=== PATIENT | male | born 1945 | race Two or more races ===

== ENCOUNTER 2019-03-08 13:26 | Emergency (ER) | payer BC, MEDICARE ==
[~2019-03-08] VITALS: Ht 175.3 cm; Wt 81.6 kg
[~2019-03-08 13:26] MED LIST: ASPIR 8181 MG ORAL; METFORMIN HCL500 M1 ORAL; MULTIVITAMINS1 EAC2 ORAL
[2019-03-08 13:35] VITALS: BP 154/86
[2019-03-08] MEDS ORDERED: Surgicel 4in x 8in TOPIC ONE (13:45)
[2019-03-08] MEDS ORDERED: IBUPROFEN600 MG ORAL (14:27)
--- NOTE | 2019-03-08 14:27 | Emergency Room Report ---
History of Present Illness General Chief Complaint: Laceration Source: Patient Present Illness HPI 73-year-old male with no significant past medical history here complaining of worsening of the hand after he accidentally cut his hand with a piece of glass. Patient has his hands out and complains of a lot of bleeding rating the pain 5 out of 10 without radiation. Patient has full sensation in fingers and in his hand. Denies tingling or numbness. Has not taken any medication for pain. Is currently on no blood thinners. Denies other injuries, chest pain, palpitation, and all other associated symptoms. Patient is up-to-date with his tetanus shot Allergies: Coded Allergies: NO KNOWN ALLERGIES (Verified Allergy, Unknown, 09/11/14) Patient History Past Medical History: see triage record Past Surgical History: unable to obtain Pertinent Family History: none Immunizations: UTD Reviewed Nursing Documentation: PMH: Agreed; PSxH: Agreed Nursing Documentation-[facility] Past Medical History: No History, Except For Hx Cardiac Problems: No Hx Asthma: Yes Hx Diabetes: Yes Hx Cancer: No Hx Gastrointestinal Problems: No Hx Neurological Problems: No Review of Systems All Other Systems: negative except mentioned in HPI Physical Exam Vital Signs Date Time Temp Pulse Resp B/P (MAP) Pulse Ox O2 Delivery O2 Flow Rate FiO2 03/08/19 13:30 98.1 78 16 154/86 (108) 94 Room Air Sp02 EP Interpretation: reviewed, normal General Appearance: normal inspection, well appearing, no apparent distress, alert, GCS 15 Head: normocephalic, atraumatic Eyes: bilateral eye normal inspection, bilateral eye PERRL ENT: normal ENT inspection, hearing grossly normal, normal pharynx Neck: normal inspection, full range of motion, supple Respiratory: normal inspection, chest non-tender, lungs clear, no rhonchi, no wheezing Cardiovascular #1: normal inspection, regular rate, rhythm, no edema, no murmur Cardiovascular #2: 2+ radial (R), 2+ radial (L) Gastrointestinal: normal inspection, no mass Genitourinary: no CVA tenderness Musculoskeletal: back normal, digits/nails normal, gait/station normal Neurologic: normal inspection, alert, oriented x3, responsive, lamp cleaner III-XII nml as tested, motor strength/tone normal, DTRs symmetric, SLR negative, sensory intact Psychiatric: normal inspection, judgement/insight normal, memory normal Skin: laceration - Dorsum of left hand superficial Lymphatic: normal inspection, no adenopathy Procedures Laceration/Wound Repair Laceration/Wound Repair : Consent: Verbal Wound Location: upper extremity Wound's Depth, Shape: superficial Wound Length (cm): 1 Wound Explored: clean Betadine Prep?: Yes Wound Repaired With: Steri-strips Layer Closure?: Yes Sterile Dressing Applied?: Yes Splint Applied?: No Sling Applied?: No Patient Tolerated: Well Complications: None Medical Decision Making PA Attestation All my diagnosis and treatment plans were reviewed ad discussed with my supervising physician Dr. Ford Diagnostic Impression: Primary Impression: Laceration of hand ER Course 73-year-old male with no significant past medical history here complaining of worsening of the hand after he accidentally cut his hand with a piece of glass. Patient has his hands out and complains of a lot of bleeding rating the pain 5 out of 10 without radiation. Patient has full sensation in fingers and in his hand. Denies tingling or numbness. Has not taken any medication for pain. Is currently on no blood thinners. Denies other injuries, chest pain, palpitation, and all other associated symptoms. Patient is up-to-date with his tetanus shot Ddx considered but are not limited to : Superficial laceration, deep laceration , tendon involvement with laceration, laceration with foreign body Vital signs: are WNL, pt. is afebrile H&PE are most consistent with: Superficial laceration of left hand ORDERS: Surgicel, wound care and dressed, x-ray of left hand, ibuprofen ED INTERVENTIONS: X-ray of left hand wound care DISCHARGE: At this time pt. is stable for d/c to home. Will provide printed patient care instructions, and any necessary prescriptions. Care plan and follow up instructions have been discussed with the patient prior to discharge. Other X-Ray Diagnostic Results Other X-Ray Diagnostic Results : X-Ray ordered: Hand # of Views/Limited Vs Complete: 2 View Indication: Pain EP Interpretation: Yes GIO Xray: Interpretation reviewed, by supervising MD, and agrees with findings. Interpretation: no dislocation, no soft tissue swelling, no fractures, other - no FB Impression: No acute disease Electronically Signed by: margarita martinez PA-C Last Vital Signs Date Time Temp Pulse Resp B/P (MAP) Pulse Ox O2 Delivery O2 Flow Rate FiO2 03/08/19 13:35 98.1 78 16 154/86 94 Room Air Disposition: HOME, SELF-CARE Condition: Stable Scripts Ibuprofen* (MOTRIN*) 600 Mg Tablet 600 MG ORAL Q8H PRN for For Pain, #30 TAB 0 Refills Prov: Margarita Kiran 03/08/19 Patient Instructions: Laceration Care, Adult Additional Instructions: Patient to follow-up with a primary care provider for wound check take medication as directed proper wound care was advised Margarita Kiran Mar 08, 2019 14:27
[2019-03-08 14:30] VITALS: BP 154/86
--- NOTE | 2019-03-08 17:43 | Diagnostic Imaging Report ---
Indication: Pain, suspected foreign body Technique: 3 views left hand Comparison: none Findings: No acute fractures. No dislocations. The joint spaces are preserved. No radiopaque foreign body demonstrated. Impression: No acute bony trauma No radiopaque foreign body demonstrated
== END 2019-03-08 14:30 | disposition home or self-care (01) ==
LOC: EMR 14:30
DX: S61.412A Laceration without foreign body of left hand, initial encounter (principal); W25.XXXA Contact with sharp glass, initial encounter; Y92.9 Unspecified place or not applicable; E11.9 Type 2 diabetes mellitus without complications
CPT/HCPCS: 99283